=== PATIENT | male | born 1940 ===

== ENCOUNTER 2018-07-13 12:13 | Inpatient (IN) | payer MEDICARE ==
[2018-07-13 12:57] LABS: BASO # 0.1 K/uL (0.0-0.2); BASO % 1.4 % (0.0-2.0); EOS # 0.1 K/uL (0.0-0.7); EOS % 1.4 % (0.0-4.0); HEMOGLOBIN 14.7 g/dL (12.0-18.0); LYMPH # 2.4 K/uL (1.0-4.3); LYMPH % 32.1 % (20.0-40.0); MEAN CORPUSCULAR HEMOGLOBIN 32.9 pg (27.0-31.0); MEAN CORPUSCULAR HGB CONC 33.6 g/dL (33.0-37.0); MEAN PLATELET VOLUME 8.7 fL (7.2-11.7); MONO # 0.4 K/uL (0.0-0.8); MONO % 5.2 % (0.0-10.0); NEUT # 4.4 K/uL (1.8-7.0); NEUT % 59.9 % (50.0-75.0); NRBC % 0.1 % (0.0-2.0); RBC 4.48 Mil/uL (4.40-5.90); WHITE BLOOD COUNT 7.4 K/uL (4.8-10.8)
[2018-07-13 13:05] LABS: INR 1.1
[2018-07-13 13:11] LABS: ALB/GLOB RATIO 1.5 (1.0-2.1); ALBUMIN 4.8 g/dL (3.5-5.0); ALT/SGPT 17 U/L (21-72); AST/SGOT 24 U/L (17-59); BLOOD UREA NITROGEN 17 mg/dL (9-20); CALCIUM 9.1 mg/dl (8.6-10.4); GFR NON-AFRICAN AMERICAN > 60
[2018-07-13 13:22] LABS: B-TYPE NATRIURETIC PEPTIDE 33.6 pg/mL (0-900)
[2018-07-13] MEDS ORDERED: Iodixanol 320 MG/ML 100 ML BOTTLE IV ONE (13:24)
--- NOTE | 2018-07-13 13:26 | C.PDOC ---
History Of Present Illness 77 year old male presents to the ED sent by PMD secondary to right sided weakness for 7 days. States his right side feels heavy. Denies any trauma, falls, or CVA history. Denies headache. Time Seen by Provider: 07/13/18 12:35 Chief Complaint (Nursing): Weakness/Neurological Deficit History Per: Patient History/Exam Limitations: no limitations Onset/Duration Of Symptoms: Days (7) Current Symptoms Are (Timing): Still Present Past Medical History Reviewed: Historical Data, Nursing Documentation, Vital Signs Vital Signs: Last Vital Signs Temp 97.6 F 07/13/18 12:21 Pulse 92 H 07/13/18 12:21 Resp 18 07/13/18 12:21 BP 152/81 H 07/13/18 12:21 Pulse Ox 98 07/13/18 12:45 - Medical History PMH: HTN Other Surgeries: Orthopedic surgery Family History: States: No Known Family Hx - Social History Hx Alcohol Use: No Hx Substance Use: No - Immunization History Hx Tetanus Toxoid Vaccination: No Hx Influenza Vaccination: No Hx Pneumococcal Vaccination: No Review Of Systems Except As Marked, All Systems Reviewed And Found Negative. Neurological: Positive for: Weakness Physical Exam - Physical Exam Appears: Non-toxic, No Acute Distress Skin: Warm, Dry Head: Atraumatic, Normacephalic Eye(s): bilateral: Normal Inspection, PERRL, EOMI Nose: Normal Oral Mucosa: Moist Neck: Supple Chest: Symmetrical Cardiovascular: Rhythm Regular Gastrointestinal/Abdominal: Soft, No Tenderness Extremity: Tenderness (right anterior shoulder ), No Deformity, No Swelling, O ther (4+/5 strength to RUE ) Extremity: Bilateral: Normal Color And Temperature DTR: Bicep (R): 2+, Bicep (L): 2+, Knee (R): 2+, Knee (L): 2+ Neurological/Psych: Oriented x3, Normal Speech, Normal Cranial Nerves, No Normal Sensation (slightly decreased sensation to RUE and RLE ) Gait: Steady ED Course And Treatment - Laboratory Results Result Diagrams: 07/13/18 12:53 07/13/18 12:53 ECG: Interpreted By Me, Viewed By Me ECG Rhythm: Sinus Rhythm Interpretation Of ECG: Normal intervals, Normal axis. No ST/T wave abdnormalities. Rate From EC O2 Sat by Pulse Oximetry: 98 (RA) Pulse Ox Interpretation: Normal - Other Rad CXR X-Ray: Read By Radiologist Interpretation: FINDINGS: Examination limited by habitus and hypoinflation. LUNGS: Mild biapical pleural thickening. No focal consolidation. Please note that chest x-ray has limited sensitivity for the detection of pulmonary masses. PLEURA: No significant pleural effusion identified. No definite pneumothorax . CARDIOVASCULAR: Heart size appears within normal limits. Atherosclerotic calcification of the aorta. OSSEOUS STRUCTURES: Degenerative changes. VISUALIZED UPPER ABDOMEN: Mild elevation of the right hemidiaphragm. OTHER FINDINGS: None. IMPRESSION: No acute findings identified. Incidental findings as above. R Shoulder XR X-Ray: Read By Radiologist Interpretation: FINDINGS: BONES: No acute displaced fracture. The distal clavicle and underlying ribs appear intact. JOINTS: No acute dislocation. Acromioclavicular arthropathy. Glenohumeral joint space narrowing. High-riding humeral head may be seen in the setting of chronic rotator cuff injury. SOFT TISSUES: Soft tissues appear unremarkable. No evidence of radiopaque foreign body. IMPRESSION: Evidence of chronic rotator cuff injury. Degenerative changes. No acute displaced fracture or dislocation evident. If symptoms persist or if there is continued clinical concern, x-ray follow-up in 7-10 days should be considered. - CT Scan/US Head CT Other Rad Studies (CT/US): Read By Radiologist, Radiology Report Reviewed CT/US Interpretation: FINDINGS: HEMORRHAGE: No intracranial hemorrhage. BRAIN: There is focal asymmetric low attenuation in the right anterior superior parietal subcortical white matter. There are mild chronic microangiopathic changes. There is no mass, mass effect or abnormal extra-axial fluid collection. The midline sagittal structures are normal. There are symmetric senile bilateral basal ganglia calcifications. VENTRICLES: There is mild age- related global parenchymal volume loss and proportionate enlargement of the ventricles and cortical sulci. CALVARIUM: There is no calvarial fracture or extracranial soft tissue swelling. PARANASAL SINUSES: Predominantly clear. MASTOID AIR CELLS: Predominantly clear. OTHER FINDINGS: None. IMPRESSION: Focal asymmetric low density in the right anterior superior parietal subcortical white matter could represent age indeterminate infarction in the appropriate clinical setting. If clinically indicated, correlation with MRI may be performed for definitive evaluation. Mild chronic microangiopathic changes and mild age-related global parenchymal volume loss. Medical Decision Making Medical Decision Making: Assessment: weakness Plan: - EKG - CXR - Bloodwork - UA - Aspirin 325 mg PO 1400 - discussed with dr. Shin. Since patient symptoms present for one week, no code stroke at this time. Aspirin given discussed with Dr. Bernstein and will admit to medical surgical floor. Disposition Discussed With : Richie Bernstein Doctor Will See Patient In The: Hospital Counseled Patient/Family Regarding: Studies Performed, Diagnosis - Disposition Disposition: HOSPITALIZED Disposition Time: 14:28 Condition: FAIR Forms: [facility] ([place]) - Clinical Impression Clinical Impression: Weakness of limb - Scribe Statement The provider has reviewed the documentation as recorded by the Scribe Slime Del Toro All medical record entries made by the Scribe were at my direction and personally dictated by me. I have reviewed the chart and agree that the record accurately reflects my personal performance of the history, physical exam, medical decision making, and the department course for this patient. I have also personally directed, reviewed, and agree with the discharge instructions and di sposition.
--- NOTE | 2018-07-13 13:58 | RAD ---
HISTORY: SOB COMPARISON: None available. TECHNIQUE: Chest, one view. FINDINGS: Examination limited by habitus and hypoinflation. LUNGS: Mild biapical pleural thickening. No focal consolidation. Please note that chest x-ray has limited sensitivity for the detection of pulmonary masses. PLEURA: No significant pleural effusion identified. No definite pneumothorax . CARDIOVASCULAR: Heart size appears within normal limits. Atherosclerotic calcification of the aorta. OSSEOUS STRUCTURES: Degenerative changes. VISUALIZED UPPER ABDOMEN: Mild elevation of the right hemidiaphragm. OTHER FINDINGS: None. IMPRESSION: No acute findings identified. Incidental findings as above.
--- NOTE | 2018-07-13 14:01 | RAD ---
PROCEDURE: Radiographs of the Right Shoulder HISTORY: right shoulder pain COMPARISON: Right shoulder radiographs performed 02/15/17 FINDINGS: BONES: No acute displaced fracture. The distal clavicle and underlying ribs appear intact. JOINTS: No acute dislocation. Acromioclavicular arthropathy. Glenohumeral joint space narrowing. High-riding humeral head may be seen in the setting of chronic rotator cuff injury. SOFT TISSUES: Soft tissues appear unremarkable. No evidence of radiopaque foreign body. IMPRESSION: Evidence of chronic rotator cuff injury. Degenerative changes. No acute displaced fracture or dislocation evident. If symptoms persist or if there is continued clinical concern, x-ray follow-up in 7-10 days should be considered.
[2018-07-13 14:15] LABS: SQUAMOUS EPITHIAL < 1 /hpf (0-5); URINE BILIRUBIN NEGATIVE (NEGATIVE); URINE BLOOD NEGATIVE (NEGATIVE); URINE CLARITY Clear (Clear); URINE COLOR Straw (YELLOW); URINE GLUCOSE (UA) NORMAL (Normal); URINE LEUKOCYTE ESTERASE NEG Leu/uL (Negative); URINE PROTEIN NEGATIVE (NEGATIVE); URINE UROBILINOGEN NORMAL mg/dL (0.2-1.0)
--- NOTE | 2018-07-13 14:19 | CT ---
Date of service: 07/13/2018 PROCEDURE: CT HEAD WITHOUT CONTRAST. HISTORY: right side weakness COMPARISON: None available. TECHNIQUE: Axial computed tomography images were obtained through the head/brain without intravenous contrast. Radiation dose: Total exam DLP = 1040.18 mGy-cm. This CT exam was performed using one or more of the following dose reduction techniques: Automated exposure control, adjustment of the mA and/or kV according to patient size, and/or use of iterative reconstruction technique. FINDINGS: HEMORRHAGE: No intracranial hemorrhage. BRAIN: There is focal asymmetric low attenuation in the right anterior superior parietal subcortical white matter. There are mild chronic microangiopathic changes. There is no mass, mass effect or abnormal extra-axial fluid collection. The midline sagittal structures are normal. There are symmetric senile bilateral basal ganglia calcifications. VENTRICLES: There is mild age-related global parenchymal volume loss and proportionate enlargement of the ventricles and cortical sulci. CALVARIUM: There is no calvarial fracture or extracranial soft tissue swelling. PARANASAL SINUSES: Predominantly clear. MASTOID AIR CELLS: Predominantly clear. OTHER FINDINGS: None. IMPRESSION: Focal asymmetric low density in the right anterior superior parietal subcortical white matter could represent age indeterminate infarction in the appropriate clinical setting. If clinically indicated, correlation with MRI may be performed for definitive evaluation. Mild chronic microangiopathic changes and mild age-related global parenchymal volume loss.
[2018-07-13] MEDS ORDERED: Aspirin 325 mg EC Tablets PO STA (14:25)
--- NOTE | 2018-07-13 14:32 | CT ---
Date of service: 07/13/2018 PROCEDURE: CTA HEAD AND NECK WITH CONTRAST HISTORY: Right sided weakness COMPARISON: None available. TECHNIQUE: Initial noncontrast head CT was performed. Subsequently, CT angiogram of the head and neck were performed after the intravenous administration of 80 mL of Omnipaque 350. Contiguous 1.5mm thick images were obtained in the axial plane of the neck. 2-D coronal and sagittal MPR images were obtained. Imaging postprocessing was performed with 3-D images also obtained. A delayed contrast head CT was also obtained. This CT exam was performed using one or more of the following dose reduction techniques: Automated exposure control, adjustment of the mA and/or kV according to patient size, and/or use of iterative reconstruction technique. Contrast dose: 100 mL Visipaque 320 Radiation dose: Total exam DLP = 551.76 mGy-cm. FINDINGS: HEAD: Right: The intracranial internal carotid artery, and anterior and middle cerebral arteries are widely patent. Left: The intracranial internal carotid artery, and anterior and middle cerebral arteries are widely patent. Posterior circulation: The visualized intracranial vertebral arteries, basilar artery and posterior cerebral arteries are widely patent. There is no endoluminal filling defect to suggest thrombus. There is no intracranial saccular aneurysm. NECK: There is a three vessel aortic arch. There is no stenosis at the origins of the great vessels at the level of the aortic arch. There are atherosclerotic calcifications in both proximal internal carotid arteries, worse on the right. Right Carotid: On the right, the common carotid, internal carotid and external carotid arteries are widely patent. There is no hemodynamically significant stenosis in the internal carotid artery by NASCET criteria. Left Carotid: On the left, the common carotid, internal carotid and external carotid arteries are widely patent. There is no hemodynamically significant stenosis in the internal carotid artery by NASCET criteria. The vertebral arteries are widely patent. The visualized soft tissues of the neck are normal. The visualized brain and cervical spine are within normal limits. There is biapical pleural thickening, worse on the left. There are scattered right apical pleural calcifications. There is an apparent 8 mm nodule in the left apical posterior segment (series 2, image 45). IMPRESSION: 1. No evidence of endoluminal thrombus,occlusion or definite significant stenosis in the intracranial arteries. 2. No evidence of hemodynamically significant stenosis in the internal carotid arteries. 3. Patent bilateral vertebral arteries. 4. Biapical pleural thickening, worse on the left. Apparent 8 mm nodule in the apical posterior segment of the left upper lobe. Comparison with prior imaging studies would be helpful to assess the stability of this nodule. If no prior imaging studies are available for comparison, a dedicated CT scan of the thorax without intravenous contrast is recommended for further characterization and complete evaluation of the lungs.
--- NOTE | 2018-07-13 14:44 | CP.PCM.CON ---
History of Present Illness - History of Present Illness History of Present Illness: Patient is a 77 year old male with PMHx of HTN who presents to ED today, sent by his PMD for evaluation of right sided weakness that began on Monday. Patient reports he awoke with severe right shoulder pain, greater in intensity than his chronic shoulder pain, and noticed weakness in his right arm in addition to abnormal movements; pt states his right arm has spastic movement without intention. Patient reports new onset right lower extremity tremor as well as right lower extremity weakness. Patient denies visual changes, paresthesias, numbness, slurred speech, or history of prior stroke or cardiac event. Denies chest pain, palpitations, SOB, nausea. PMHx: HTN PSHx: appendectomy, left ortho foot sx Meds: losartan, amlodipine Allergies: NKDA Review of Systems - EENT Eyes: absent: Change in Vision - Cardiovascular Cardiovascular: absent: Chest Pain, Leg Edema, Palpitations - Respiratory Respiratory: absent: Dyspnea - Gastrointestinal Gastrointestinal: absent: Nausea - Musculoskeletal Musculoskeletal: Abnormal Gait, Limited Range of Motion (right shoulder). absent: Numbness - Neurological Neurological: Abnormal Gait (2/2 weakness), Abnormal Movements, Tremor (RLE), Weakness. 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 - PSYCHIATRIC Hx Substance Use: No - SURGICAL HISTORY Hx Surgeries: Yes Hx Orthopedic Surgery: Yes (LEFT ANKLE) - ANESTHESIA Hx Anesthesia: Yes Hx Anesthesia Reactions: No Meds Allergies/Adverse Reactions: Allergies Allergy/AdvReac Type Severity Reaction Status Date / Time No Known Allergies Allergy Unverified 07/13/18 12:28 Physical Exam - Constitutional Appears: Non-toxic, No Acute Distress - Head Exam Head Exam: ATRAUMATIC, NORMAL INSPECTION, NORMOCEPHALIC - Eye Exam Eye Exam: EOMI, Normal appearance Pupil Exam: PERRL - ENT Exam ENT Exam: Mucous Membranes Moist, Normal Exam - Neck Exam Neck exam: Positive for: Normal Inspection - Respiratory Exam Respiratory Exam: Clear to Auscultation Bilateral, NORMAL BREATHING PATTERN. absent: Respiratory Distress - Cardiovascular Exam Cardiovascular Exam: REGULAR RHYTHM, +S1, +S2. absent: Tachycardia - GI/Abdominal Exam GI & Abdominal Exam: Soft. absent: Distended - Extremities Exam Extremities exam: Positive for: normal inspection. Negative for: calf tenderness, pedal edema - Neurological Exam Neurological exam: Alert, Oriented x3 - Expanded Neurological Exam Expanded Patient oriented to: person, place, time Cranial nerves: EOM's Intact: Normal, Facial Sensation: Normal Neuro motor strength exam: Left Upper Extremity: 5, Right Upper Extremity: 4 (decreased right learning coordinator), Left Lower Extremity: 5, Right Lower Extremity: 5 - Psychiatric Exam Psychiatric exam: Normal Affect, Normal Mood - Skin Skin Exam: Dry, Intact, Normal Color, Warm Results - Vital Signs Recent Vital Signs: Last Vital Signs Temp 97.6 F 07/13/18 12:21 Pulse 92 H 07/13/18 12:21 Resp 18 07/13/18 12:21 BP 152/81 H 07/13/18 12:21 Pulse Ox 98 07/13/18 14:28 - Labs Result Diagrams: 07/13/18 12:53 07/13/18 12:53 Labs: Laboratory Results - last 24 hr 07/13/18 07/13/18 07/13/18 12:27 12:53 12:53 WBC 7.4 RBC 4.48 Hgb 14.7 Hct 43.9 MCV 98.0 H MCH 32.9 H MCHC 33.6 RDW 13.0 Plt Count 325 MPV 8.7 Neut % (Auto) 59.9 Lymph % (Auto) 32.1 [place] % (Auto) 5.2 Eos % (Auto) 1.4 Baso % (Auto) 1.4 Neut # (Auto) 4.4 Lymph # (Auto) 2.4 [place] # (Auto) 0.4 Eos # (Auto) 0.1 Baso # (Auto) 0.1 PT 12.0 INR 1.1 APTT 33 Sodium Potassium Chloride Carbon Dioxide Anion Gap BUN Creatinine Est GFR ( Amer) Est GFR (Non-Af Amer) POC Glucose (mg/dL) 94 Random Glucose Calcium Total Bilirubin AST ALT Alkaline Phosphatase Troponin I NT-Pro-B Natriuret Pep Total Protein Albumin Globulin Albumin/Globulin Ratio Urine Color Urine Clarity Urine pH Ur Specific [place] Urine Protein Urine Glucose (UA) Urine Ketones Urine Blood Urine Nitrate Urine Bilirubin Urine Urobilinogen Ur Leukocyte Esterase Urine WBC (Auto) Ur Squamous Epith Cells 07/13/18 07/13/18 12:53 14:07 WBC RBC Hgb Hct MCV MCH MCHC RDW Plt Count MPV Neut % (Auto) Lymph % (Auto) [place] % (Auto) Eos % (Auto) Baso % (Auto) Neut # (Auto) Lymph # (Auto) [place] # (Auto) Eos # (Auto) Baso # (Auto) PT INR APTT Sodium 138 Potassium 3.8 Chloride 103 Carbon Dioxide 23 Anion Gap 16 BUN 17 Creatinine 0.9 Est GFR ( Amer) > 60 Est GFR (Non-Af Amer) > 60 POC Glucose (mg/dL) Random Glucose 99 Calcium 9.1 Total Bilirubin 0.6 AST 24 ALT 17 L Alkaline Phosphatase 75 Troponin I < 0.0120 NT-Pro-B Natriuret Pep 33.6 Total Protein 8.1 Albumin 4.8 Globulin 3.3 Albumin/Globulin Ratio 1.5 Urine Color Straw Urine Clarity Clear Urine pH 7.0 Ur Specific [place] 1.004 Urine Protein Negative Urine Glucose (UA) Normal Urine Ketones Negative Urine Blood Negative Urine Nitrate Negative Urine Bilirubin Negative Urine Urobilinogen Normal Ur Leukocyte Esterase Neg Urine WBC (Auto) < 1 Ur Squamous Epith Cells < 1 Assessment & Plan - Assessment and Plan (Free Text) Assessment: 77 year old male 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 Moderate chronic microangiopathic changes and mild age related global parenchymal volume loss -CTA head/neck(07/13): negative for stenosis/occlusion -f/u echo -ASA -f/u lipid panel, A1C, B12, folate, TSH -PT/OT/swallow -medical management per primary Discussed with Dr. Kip Mederos, PGY-1
--- NOTE | 2018-07-13 15:09 | MRI ---
Date of service: 07/13/2018 PROCEDURE: MRI BRAIN WITHOUT CONTRAST HISTORY: Right sided weakness COMPARISON: Noncontrast head CT performed earlier the same day TECHNIQUE: Multiplanar, multisequence MR images of the brain were obtained without intravenous contrast enhancement. FINDINGS: HEMORRHAGE: None DWI: There is focal restricted diffusion in the left posterior centrum semiovale. BRAIN PARENCHYMA: There is T2/FLAIR hyperintense signal corresponding to the area of restricted diffusion in the left posterior centrum semiovale. There are moderate chronic microangiopathic changes. There is focal chronic microvascular ischemia in the right parietal subcortical white matter corresponding to the focal abnormality identified on CT scan. There is no mass, mass effect or abnormal extra-axial fluid collection. The midline sagittal structures are normal. VENTRICLES: There is mild age-related global parenchymal volume loss and proportionate enlargement of the ventricles and cortical sulci. CRANIUM: There is normal bone marrow signal pattern. ORBITS: Grossly unremarkable. PARANASAL SINUSES/MASTOIDS: Predominantly clear. VASCULAR SYSTEM: There are normal signal voids in the larger intracranial arteries. OTHER FINDINGS: None. 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 Moderate chronic microangiopathic changes and mild age-related global parenchymal volume loss. Important findings were discussed with Dr. Jose Shin on 07/13/2018 at 3:00 p.m.
[2018-07-13 21:00] LABS: FOLATE 13.2 ng/mL
[2018-07-14] MEDS: Enoxaparin 40 mg Syringe SC SCH (10:18)
--- NOTE | 2018-07-14 16:56 | CARD ---
APPROVED REPORT Date of service: 07/14/2018 EXAM: Two-dimensional and M-mode echocardiogram with Doppler and color Doppler. INDICATION CVA/TIA 2D DIMENSIONS IVSd0.9 (0.7-1.1cm)Aortic Root (2D)3.1 (2.0-3.7cm) LVDd4.3 (3.9-5.9cm)PWd0.9 (0.7-1.1cm) LA Usrhjs85 (18-58mL)LVDs2.2 (2.5-4.0cm) FS (%) 42.0 %LVEF (%)69.0 (>50%) LVEF (Wild's)72 %IVC0.00 cm M-Mode DIMENSIONS Left Atrium (MM)3.12 (2.5-4.0cm)IVSd0.52 (0.7-1.1cm) Aortic Root2.62 (2.2-3.7cm)LVDd5.14 (4.0-5.6cm) Aortic Cusp Exc.1.37 (1.5-2.0cm)PWd0.94 (0.7-1.1cm) FS (%) 40 %LVDs2.28 (2.0-3.8cm) LVEF (%)70 (>50%) Mitral Valve MV E Ednyzble03.8cm/sMV A Jiqxtqgx756.0cm/sE/A ratio0.6 TDI Lateral E' Peak V7.00cm/sMedial E' Peak V3.90cm/sE/Lateral E'9.3 E/Medial E'16.6 Tricuspid Valve TR Peak [id number]/sTR Peak Gr.[id number] LEFT VENTRICLE The left ventricle is normal size. There is normal left ventricular wall thickness. Left ventricle systolic function is normal. The Ejection Fraction is >70%. There is normal LV segmental wall motion. Tissue Doppler imaging reveals abnormal left ventricular diastolic dysfunction. RIGHT VENTRICLE The right ventricle is normal size. There is normal right ventricular wall thickness. The right ventricular systolic function is normal. ATRIA The left atrium size is normal. The right atrium size is normal. The interatrial septum is intact with no evidence for an atrial septal defect. AORTIC VALVE The aortic valve is normal in structure. No aortic regurgitation is present. There is no aortic valvular stenosis. MITRAL VALVE The mitral valve is normal in structure. There is no evidence of mitral valve prolapse. There is no mitral valve stenosis. Mitral regurgitation is mild. TRICUSPID VALVE The tricuspid valve is normal in structure. There is mild tricuspid regurgitation. Right ventricular systolic pressure is estimated at less than 30 mmHg. There is no pulmonary hypertension. PULMONIC VALVE The pulmonic valve is not well visualized. There is no pulmonic valvular regurgitation. GREAT VESSELS The aortic root is normal in size. PERICARDIAL EFFUSION There is no pericardial effusion. <Conclusion> Left ventricle systolic function is normal. The Ejection Fraction is >70%. Diastolic dysfunction. No aortic regurgitation is present. Mitral regurgitation is mild. There is mild tricuspid regurgitation. There is no pulmonary hypertension. There is no pulmonic valvular regurgitation.
--- NOTE | 2018-07-14 21:23 | CP.PCM.HP ---
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 - RENAL Hx Chronic Kidney Disease: No - ENDOCRINE/METABOLIC Hx Endocrine Disorders: No - HEMATOLOGICAL/ONCOLOGICAL Hx Blood Disorders: No - INTEGUMENTARY Hx Dermatological Problems: No - MUSCULOSKELETAL/RHEUMATOLOGICAL Hx Musculoskeletal Disorders: No - GASTROINTESTINAL Hx Gastrointestinal Disorders: No - GENITOURINARY/GYNECOLOGICAL Hx Genitourinary Disorders: No - PSYCHIATRIC Hx Substance Use: No - SURGICAL HISTORY Hx Surgeries: Yes Hx Orthopedic Surgery: Yes (LEFT ANKLE) - ANESTHESIA Hx Anesthesia: Yes Hx Anesthesia Reactions: No Hx Malignant Hyperthermia: No Has any member of the family had a problem w/ anesthesia?: No Meds Allergies/Adverse Reactions: Allergies Allergy/AdvReac Type Severity Reaction Status Date / Time No Known Allergies Allergy Unverified 07/13/18 12:28 Results - Vital Signs Recent Vital Signs: Last Vital Signs Temp 98.1 F 07/14/18 15:00 Pulse 71 07/14/18 16:47 Resp 20 07/14/18 15:00 BP 131/69 07/14/18 15:00 Pulse Ox 95 07/14/18 16:47 - Labs Result Diagrams: 07/13/18 12:53 07/13/18 12:53
[2018-07-15] MEDS: Enoxaparin 40 mg Syringe SC SCH (09:13)
--- NOTE | 2018-07-15 11:27 | CP.PCM.CON ---
History of Present Illness - History of Present Illness History of Present Illness: reason for consultation: biapical pleural thickening 77-year-old male with history of hypertension who presented to emergency room wi th right-sided weakness. patient denies cough, denies shortness of breat, denies fever chills, denies chest pain. Patient denies history of smoking or exposure to asbestos or any chemicals. 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 - RENAL Hx Chronic Kidney Disease: No - ENDOCRINE/METABOLIC Hx Endocrine Disorders: No - HEMATOLOGICAL/ONCOLOGICAL Hx Blood Disorders: No - INTEGUMENTARY Hx Dermatological Problems: No - MUSCULOSKELETAL/RHEUMATOLOGICAL Hx Musculoskeletal Disorders: No - GASTROINTESTINAL Hx Gastrointestinal Disorders: No - GENITOURINARY/GYNECOLOGICAL Hx Genitourinary Disorders: No - PSYCHIATRIC Hx Substance Use: No - SURGICAL HISTORY Hx Surgeries: Yes Hx Orthopedic Surgery: Yes (LEFT ANKLE) - ANESTHESIA Hx Anesthesia: Yes Hx Anesthesia Reactions: No Hx Malignant Hyperthermia: No Has any member of the family had a problem w/ anesthesia?: No Meds Allergies/Adverse Reactions: Allergies Allergy/AdvReac Type Severity Reaction Status Date / Time No Known Allergies Allergy Unverified 07/13/18 12:28 - Medications Medications: Current Medications Acetaminophen (Tylenol 325mg Tab) 650 mg PO Q6 PRN PRN Reason: Pain, Mild (1-3) Last Admin: 07/15/18 00:02 Dose: 650 mg Aspirin (Aspirin) 325 mg PO DAILY [facility] Last Admin: 07/15/18 09:13 Dose: 325 mg Enoxaparin Sodium (Lovenox) 40 mg SC DAILY [facility] Last Admin: 07/15/18 09:13 Dose: 40 mg Losartan Potassium (Cozaar) 100 mg PO DAILY [facility] Last Admin: 07/15/18 09:13 Dose: 100 mg Rosuvastatin Calcium (Crestor) 20 mg PO HS [facility] Last Admin: 07/14/18 21:23 Dose: 20 mg Physical Exam - Head Exam Head Exam: ATRAUMATIC, NORMOCEPHALIC - ENT Exam ENT Exam: Mucous Membranes Moist - Neck Exam Neck exam: Positive for: Normal Inspection - Respiratory Exam Respiratory Exam: Clear to Auscultation Bilateral - Cardiovascular Exam Cardiovascular Exam: REGULAR RHYTHM - GI/Abdominal Exam GI & Abdominal Exam: Normal Bowel Sounds, Soft Results - Vital Signs Recent Vital Signs: Last Vital Signs Temp 97.8 F 07/15/18 07:20 Pulse 77 07/15/18 09:13 Resp 18 07/15/18 07:20 BP 132/74 07/15/18 09:13 Pulse Ox 97 07/15/18 07:20 - Labs Result Diagrams: 07/13/18 12:53 07/13/18 12:53 Assessment & Plan (1) Pleural thickening Status: Acute Comment: consider CAT scan of the chest. Does not need any further workup. Neurology workup/physical therapy
--- NOTE | 2018-07-15 15:38 | CP.PCM.PN ---
Subjective - Date & Time of Evaluation Date of Evaluation: 07/14/18 Time of Evaluation: 13:45 - Subjective Subjective: Patient has subacute stroke in left centrum semiovale, most likely several days old. Stroke workup in progress. ECHO, CTA head and neck completed. ROS: as above. Neuro exam: Normal neuro exam except for right arm that is weak secondary to pain. MRI: normal CTA head: normal. Objective - Vital Signs/Intake and Output Vital Signs (last 24 hours): Temp Pulse Resp BP Pulse Ox 97.8 F 69 18 132/74 97 07/15/18 07:20 07/15/18 12:00 07/15/18 07:20 07/15/18 09:13 07/15/18 07:20 Intake and Output: 07/15/18 07/15/18 06:59 18:59 Intake Total 400 Balance 400 - Medications Medications: Current Medications Acetaminophen (Tylenol 325mg Tab) 650 mg PO Q6 PRN PRN Reason: Pain, Mild (1-3) Last Admin: 07/15/18 00:02 Dose: 650 mg Aspirin (Aspirin) 325 mg PO DAILY [facility] Last Admin: 07/15/18 09:13 Dose: 325 mg Enoxaparin Sodium (Lovenox) 40 mg SC DAILY [facility] Last Admin: 07/15/18 09:13 Dose: 40 mg Losartan Potassium (Cozaar) 100 mg PO DAILY [facility] Last Admin: 07/15/18 09:13 Dose: 100 mg Rosuvastatin Calcium (Crestor) 20 mg PO HS [facility] Last Admin: 07/14/18 21:23 Dose: 20 mg - Labs Labs: 07/13/18 12:53 07/13/18 12:53 PT 12.0 SECONDS (9.7-12.2) 07/13/18 12:53 INR 1.1 07/13/18 12:53 APTT 33 SECONDS (21-34) 07/13/18 12:53 Assessment and Plan - Assessment and Plan (Free Text) Assessment: Patient with most likely lacunar stroke PLan: 1. continue management. Dr. ardon
--- NOTE | 2018-07-15 15:53 | CP.PCM.PN ---
Subjective - Date & Time of Evaluation Date of Evaluation: 07/14/18 Time of Evaluation: 15:30 - Subjective Subjective: patient has some weakness on right side. stroke workup complete. On exam: Neuro exam unchanged. Objective - Vital Signs/Intake and Output Vital Signs (last 24 hours): Temp Pulse Resp BP Pulse Ox 97.8 F 69 18 132/74 97 07/15/18 07:20 07/15/18 12:00 07/15/18 07:20 07/15/18 09:13 07/15/18 07:20 Intake and Output: 07/15/18 07/15/18 06:59 18:59 Intake Total 400 Balance 400 - Medications Medications: Current Medications Acetaminophen (Tylenol 325mg Tab) 650 mg PO Q6 PRN PRN Reason: Pain, Mild (1-3) Last Admin: 07/15/18 00:02 Dose: 650 mg Aspirin (Aspirin) 325 mg PO DAILY [facility] Last Admin: 07/15/18 09:13 Dose: 325 mg Enoxaparin Sodium (Lovenox) 40 mg SC DAILY [facility] Last Admin: 07/15/18 09:13 Dose: 40 mg Losartan Potassium (Cozaar) 100 mg PO DAILY [facility] Last Admin: 07/15/18 09:13 Dose: 100 mg Rosuvastatin Calcium (Crestor) 20 mg PO HS [facility] Last Admin: 07/14/18 21:23 Dose: 20 mg - Labs Labs: 07/13/18 12:53 07/13/18 12:53 PT 12.0 SECONDS (9.7-12.2) 07/13/18 12:53 INR 1.1 07/13/18 12:53 APTT 33 SECONDS (21-34) 07/13/18 12:53 Assessment and Plan - Assessment and Plan (Free Text) Assessment: 77 yr old male with most likely lacunar stroke, who has now completed his stroke workup, and is obtaining physical therapy. PLan; 1. continue aspirin 2. Orthopedic surgery for rotator cuff tear. Will follow Dr Shin
--- NOTE | 2018-07-16 01:10 | PN ---
DATE: 07/15/2018 SUBJECTIVE: The patient is with right-sided weakness. He is feeling better. He denies any shortness of breath. His MRI is positive for a stroke. The patient was seen by Neurology. Stroke workup is completed. Neuro status is unchanged. He does have right-sided weakness. The patient is for Orthopedics' eval. PHYSICAL EXAMINATION VITAL SIGNS: Blood pressure 128/68, pulse 64, respiratory rate 20, temperature 97.8. SKIN: No rashes. No bruises. No purpura. LUNGS: Clear. CARDIOVASCULAR SYSTEM: S1 and S2 regular. CENTRAL NERVOUS SYSTEM: Right-sided power is 2/5. ASSESSMENT: 1. Cerebrovascular accident with right-sided weakness. 2. Hypertension. 3. Hyperlipidemia. 4. Vitamin B12 deficiency. PLAN: Physical therapy, rehab. Orthopedics' eval for right-sided shoulder pain. Richie Bernstein MD
--- NOTE | 2018-07-16 02:20 | HP ---
CHIEF COMPLAINT: Right-sided weakness x7 days. HISTORY OF PRESENT ILLNESS: This is a 77-year-old male who presented to the emergency room with right-sided weakness for seven days. According to him, right side is still heavy. He is having difficulty walking using his right hand for activities of daily living according to the patient. He was seen by his PMD for this complaint, and he referred him to emergency room, which started a week ago. He is also having right shoulder pain. The pain is sharp in intensity. He has it for long time and is worse with right upper extremity movement. According to the patient, the pain is spastic. The patient also has right-sided weakness and tremor. The patient denies any visual changes, paresthesias, numbness, slurring of speech, or prior history of stroke or any cardiovascular events. He denies any palpitation, weakness, dizziness, chest pain, or dyspnea. He denies any history of polyuria, polydipsia, or polyphagia. He denies any history of hematuria or pyuria. He denies any sneezing, itchy eyes, or itchy nose. There is no history of trauma, fall, or loss of consciousness. CURRENT MEDICATIONS: At home, he is on Norvasc and losartan. SOCIAL HISTORY: Nonsmoker. PHYSICAL EXAMINATION: GENERAL: An elderly male, in no acute distress. VITAL SIGNS: Blood pressure 127/73, pulse 75, respiratory rate 20, temperature 97.4. SKIN: No rashes. No bruises. No purpura. HEENT: Atraumatic and normocephalic. Negative pallor. Negative jaundice. Extraocular movements are intact. NECK: Supple. No JVD. No lymph node. No thyromegaly. No carotid bruits. CHEST WALL: Bilateral symmetrical expansion. No tenderness. LUNGS: Clear. No rales. No rhonchi. CARDIOVASCULAR SYSTEM: PMI in the fifth intercostal space. No heave. No thrill. S1 and S2 are regular. ABDOMEN: Soft and nontender. Bowel sounds are positive. RECTAL: Enlarged prostate. GENITAL: Normal. EXTREMITIES: No clubbing, cyanosis or edema. Right shoulder decreased range of movement. CENTRAL NERVOUS SYSTEM: Awake, alert and oriented x3. Normal speech. Cranial nerves II through XII are normal. Power 2/5 in the right upper extremity, 5/5 rest. Gait not tested. ASSESSMENT: 1. Cerebrovascular accident with right-sided weakness. 2. Hypertension. 3. Hyperlipidemia. 4. Right shoulder pain. PLAN: Admit. Neuro checks. Fall precaution. Physical therapy. Rehab. Richie Bernstein MD
--- NOTE | 2018-07-16 08:18 | CARD ---
APPROVED REPORT Date of service: 07/13/2018 EKG Measurement Heart [id number] [place] [id number] <Conclusion> Normal sinus rhythm Normal ECG
[2018-07-16] MEDS: Enoxaparin 40 mg Syringe SC SCH (10:02)
--- NOTE | 2018-07-16 11:08 | CP.PCM.CON ---
History of Present Illness - History of Present Illness History of Present Illness: Orthopedic Consult: Dr. Perez Patient is a 77 y/o RHD male c/o R shoulder pain. Patient is currently admitted and treated for stroke. He reports non-traumatic R shoulder pain and dysfunction which began 2-3 weeks ago. He was evaluated outpatient by physician who prescribed course of physical therapy, 5-6 sessions so far, which has not been helping. When he woke up a few days ago, he experienced severe R shoulder pain and weakness, without injury. Currently, he c/o moderate sharp pain at the shoulder anteriorly and laterally. The pain worsens when lifting objects and sleeping on his R side. The pain improves with rest. Pain is associated with weakness and stiffness. He notes that he has had a cortisone injection to the R shoulder by a physician 2-3 months ago which alleviated the pain temporarily. He denies CP/SOB/N/V/D/fever/dysuria/melena. 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 - RENAL Hx Chronic Kidney Disease: No - ENDOCRINE/METABOLIC Hx Endocrine Disorders: No - HEMATOLOGICAL/ONCOLOGICAL Hx Blood Disorders: No - INTEGUMENTARY Hx Dermatological Problems: No - MUSCULOSKELETAL/RHEUMATOLOGICAL Hx Musculoskeletal Disorders: No - GASTROINTESTINAL Hx Gastrointestinal Disorders: No - GENITOURINARY/GYNECOLOGICAL Hx Genitourinary Disorders: No - PSYCHIATRIC Hx Substance Use: No - SURGICAL HISTORY Hx Surgeries: Yes Hx Orthopedic Surgery: Yes (LEFT ANKLE) - ANESTHESIA Hx Anesthesia: Yes Hx Anesthesia Reactions: No Hx Malignant Hyperthermia: No Has any member of the family had a problem w/ anesthesia?: No Meds Allergies/Adverse Reactions: Allergies Allergy/AdvReac Type Severity Reaction Status Date / Time No Known Allergies Allergy Unverified 07/13/18 12:28 - Medications Medications: Current Medications Acetaminophen (Tylenol 325mg Tab) 650 mg PO Q6 PRN PRN Reason: Pain, Mild (1-3) Last Admin: 07/15/18 21:29 Dose: 650 mg Aspirin (Aspirin) 325 mg PO DAILY [facility] Last Admin: 07/16/18 10:02 Dose: 325 mg Enoxaparin Sodium (Lovenox) 40 mg SC DAILY [facility] Last Admin: 07/16/18 10:02 Dose: 40 mg Losartan Potassium (Cozaar) 100 mg PO DAILY [facility] Last Admin: 07/16/18 10:03 Dose: 100 mg Rosuvastatin Calcium (Crestor) 20 mg PO HS [facility] Last Admin: 07/15/18 21:29 Dose: 20 mg Physical Exam - Constitutional Appears: Well, No Acute Distress - Head Exam Head Exam: ATRAUMATIC, NORMOCEPHALIC - Eye Exam Eye Exam: EOMI, Normal appearance, PERRL - ENT Exam ENT Exam: Mucous Membranes Moist - Respiratory Exam Respiratory Exam: NORMAL BREATHING PATTERN - Cardiovascular Exam Cardiovascular Exam: +S1, +S2 - GI/Abdominal Exam GI & Abdominal Exam: Soft. absent: Tenderness - Extremities Exam Additional comments: RUE: no swelling/masses/deformity/lesions diffuse tenderness anteriorly and laterally, tender at bicipital groove Active FF and abd 0-90deg, passive FF and ABD 0-150 deg, ER 0-60 sensation and motor intact AXN/MN/UN/RN radial pulse intact LUE: no swelling/masses/deformity/lesions no tenderness FROM sensation and motor intact AXN/MN/UN/RN radial pulse intact Results - Vital Signs Recent Vital Signs: Last Vital Signs Temp 97.9 F 07/16/18 08:00 Pulse 67 07/16/18 08:00 Resp 20 07/16/18 08:00 BP 140/81 07/16/18 08:00 Pulse Ox 97 07/16/18 08:00 - Labs Result Diagrams: 07/13/18 12:53 07/13/18 12:53 - Impressions Impression: Accession No. : [id number] Patient Name / ID : EDUARDA Mcmahon / [id number] Exam Date : 07/13/2018 13:13:26 ( Approved ) Study Comment : Sex / Age : M / 77Y Creator : Debi Moreno MD Dictator : Debi Moreno MD Boat Detailer : Assistant Department Manager : Debi Moreno MD Approver2 : Report Date : 07/13/2018 13:57:09 My Comment : PROCEDURE: Radiographs of the Right Shoulder HISTORY: right shoulder pain COMPARISON: Right shoulder radiographs performed 02/15/17 FINDINGS: BONES: No acute displaced fracture. The distal clavicle and underlying ribs appear intact. JOINTS: No acute dislocation. Acromioclavicular arthropathy. Glenohumeral joint space narrowing. High-riding humeral head may be seen in the setting of chronic rotator cuff injury. SOFT TISSUES: Soft tissues appear unremarkable. No evidence of radiopaque foreign body. IMPRESSION: Evidence of chronic rotator cuff injury. Degenerative changes. No acute displaced fracture or dislocation evident. If symptoms persist or if there is continued clinical concern, x-ray follow-up in 7-10 days should be considered. Assessment & Plan (1) Right rotator cuff tear Assessment and Plan: -pain control, ice and NSAID's if ok with neurology (pt currently on ASA). Lidocaine patches prn -MRI R shoulder to evaluate for rotator cuff tear -PT/OT ROM/strenthening as tolerated -No acute orthopedic intervention required otherwise -May f/u as outpatient for treatment -orthopedically stable -Above d/w Dr. Perez in agreement Status: Acute
--- NOTE | 2018-07-16 11:29 | CP.PCM.PN ---
Subjective - Date & Time of Evaluation Date of Evaluation: 07/16/18 Time of Evaluation: 08:00 - Subjective Subjective: Neurology Progress Note: Patient was seen and examined at bedside in the AM. Patient states he continues to have right shoulder pain 04/25. He states he previously completed 6 sessions of physical therapy for his shoulder as an out patient with no pain relief. Objective - Vital Signs/Intake and Output Vital Signs (last 24 hours): Temp Pulse Resp BP Pulse Ox 97.9 F 67 20 140/81 97 07/16/18 08:00 07/16/18 08:00 07/16/18 08:00 07/16/18 08:00 07/16/18 08:00 - Medications Medications: Current Medications Acetaminophen (Tylenol 325mg Tab) 650 mg PO Q6 PRN PRN Reason: Pain, Mild (1-3) Last Admin: 07/15/18 21:29 Dose: 650 mg Aspirin (Aspirin) 325 mg PO DAILY [facility] Last Admin: 07/16/18 10:02 Dose: 325 mg Enoxaparin Sodium (Lovenox) 40 mg SC DAILY [facility] Last Admin: 07/16/18 10:02 Dose: 40 mg Lidocaine (Lidoderm) 1 ea TD Q12H [facility] Losartan Potassium (Cozaar) 100 mg PO DAILY [facility] Last Admin: 07/16/18 10:03 Dose: 100 mg Rosuvastatin Calcium (Crestor) 20 mg PO HS [facility] Last Admin: 07/15/18 21:29 Dose: 20 mg - Labs Labs: 07/13/18 12:53 07/13/18 12:53 PT 12.0 SECONDS (9.7-12.2) 07/13/18 12:53 INR 1.1 07/13/18 12:53 APTT 33 SECONDS (21-34) 07/13/18 12:53 - Constitutional Appears: No Acute Distress - Head Exam Head Exam: ATRAUMATIC, NORMAL INSPECTION - Eye Exam Eye Exam: EOMI, Normal appearance - ENT Exam ENT Exam: Mucous Membranes Moist - Respiratory Exam Respiratory Exam: Clear to Ausculation Bilateral, NORMAL BREATHING PATTERN - Cardiovascular Exam Cardiovascular Exam: REGULAR RHYTHM, +S1, +S2 - GI/Abdominal Exam GI & Abdominal Exam: Soft, Normal Bowel Sounds. 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 Moderate chronic microangiopathic changes and mild age related global parenchymal volume loss - CTA head/neck(07/13): negative for stenosis/occlusion - Carotid Doppler: Right internal carotid artery - normal; left internal carotid artery - 50-60% stenosis of left proximal ICA - Vascular Surgery Consult: Dr. Shcafer --> help appreciated - Plavix 75mg po daily - Aspirin 81mg po daily - Crestor 20mg po HS - Echo: EF >70%; diastolic dysfunction. - Lipid panel: Total Cholesterol 162; LDL 113; HDL 47; Triglycerides 142 - hA1C 5.0 - B12: 295, folate 13.2, TSH 2.44 - PT recommends subacute therapy - medical management per primary Case discussed with Dr. Kip Cramer PGY-2
--- NOTE | 2018-07-16 13:05 | VASCLAB ---
Date of service: 07/14/2018 PROCEDURE: Carotid Duplex Exam. HISTORY: Right side weakness COMPARISON: None available. TECHNIQUE: Grayscale and duplex Doppler evaluation of the cervical carotid and vertebral arteries were performed. The common carotid, carotid bifurcations and cervical Internal Carotid Artery (ICA) and proximal External Carotid Artery (ECA) were evaluated. The vertebral arteries were evaluated for gross patency and flow direction. Report prepared by MICHA Veloz FINDINGS: RIGHT CAROTID ARTERIES: 1. Common Carotid Artery: No significant focal plaque formation of the right common carotid artery. Maximum Peak Systolic velocity: 117 cm/sec: End-diastolic velocity 17 cm/sec. 2. Carotid Bifurcation: plaque formation. Maximum Peak Systolic velocity: 80 cm/sec: End-diastolic velocity 12 cm/sec. 3. Internal Carotid Artery: Plaque description: Calcific 3.1. Proximal Segment: Peak systolic velocity 90 cm/sec: End-diastolic velocity 20 cm/sec - % stenosis 0-15% 3.2. Middle Segment: Peak systolic velocity 91 cm/sec: End-diastolic velocity 25 cm/sec - % stenosis 0-15% 3.3. Distal Segment: Peak systolic velocity 65 cm/sec: End-diastolic velocity 11 cm/sec - % stenosis 0-15% 4. External Carotid Artery: No significant focal plaque formation. Peak systolic velocity 149 cm/sec 5. ICA/CCA Ratio: 1.1 LEFT CAROTID ARTERIES: 1. Common Carotid Artery: No significant focal plaque formation of the left common carotid artery. Maximum Peak Systolic velocity: 125 cm/sec: End-diastolic velocity 9 cm/sec. 2. Carotid Bifurcation: plaque formation. Maximum Peak Systolic velocity: 83 cm/sec: End-diastolic velocity 16 cm/sec. 3. Internal Carotid Artery: Plaque description: Homogeneous 3.1. Proximal Segment: Peak systolic velocity 162 cm/sec: End-diastolic velocity 32 cm/sec - % stenosis 50-60% 3.2. Middle Segment: Peak systolic velocity 98 cm/sec: End-diastolic velocity 23 cm/sec - % stenosis 3.3. Distal Segment: Peak systolic velocity 90 cm/sec: End-diastolic velocity 22 cm/sec - % stenosis 4. External Carotid Artery: No significant focal plaque formation. Peak systolic velocity 95 cm/sec 5. ICA/CCA Ratio: 1.6 VERTEBRAL ARTERIES: 1. Right Vertebral Artery: The right vertebral artery flow direction is antegrade. 2. Left Vertebral Artery: The left vertebral artery flow direction is antegrade. OTHER FINDINGS: 1. Right Brachial Blood pressure: 125/70 mmHg. 2. Left Brachial Blood pressure: 130/70 mmHg IMPRESSION: RIGHT: Duplex scan does not suggest hemodynamically significant stenosis of the right extracranial carotid arteries. LEFT: Increased velocity at the proximal internal carotid artery, suggesting 50-60% stenosis. Findings were reported to JO-ANN Cortez at 11:13 am.
[2018-07-16] MEDS: Lidocaine 5% Patch TD SCH ×2 (13:54→23:55)
--- NOTE | 2018-07-16 15:55 | CP.PCM.PN ---
Subjective - Date & Time of Evaluation Date of Evaluation: 07/16/18 Time of Evaluation: 15:51 - Subjective Subjective: Vascular Surgery Consult Note For Dr. Schafer This is a 77M with no PMH who presented with RUE pain and RUE + RLE weakness. MRI of the head was significant for a left sided CVA. The patient currently complains of shoulder pain and weakness. No change sine admission. He denies any evolving symptomatology. He denies any illnesses at home. He denies any chest pain or SOB. CTA of the neck shows no stenosis in the common or internal car otid. The ultrasound is significant for a mild hypervelocity in the proximal L ICA. PHH: Denies PSH: Appendectomy ALL: NKDA Social: Denies Vices Objective - Vital Signs/Intake and Output Vital Signs (last 24 hours): Temp Pulse Resp BP Pulse Ox 97.9 F 67 20 140/81 97 07/16/18 08:00 07/16/18 08:00 07/16/18 08:00 07/16/18 08:00 07/16/18 08:00 - Medications Medications: Current Medications Acetaminophen (Tylenol 325mg Tab) 650 mg PO Q6 PRN PRN Reason: Pain, Mild (1-3) Last Admin: 07/15/18 21:29 Dose: 650 mg Aspirin (Ecotrin) 81 mg PO DAILY [facility] Clopidogrel Bisulfate (Plavix) 75 mg PO DAILY [facility] Enoxaparin Sodium (Lovenox) 40 mg SC DAILY [facility] Last Admin: 07/16/18 10:02 Dose: 40 mg Lidocaine (Lidoderm) 1 ea TD Q12H [facility] Last Admin: 07/16/18 13:54 Dose: 1 ea Losartan Potassium (Cozaar) 100 mg PO DAILY [facility] Last Admin: 07/16/18 10:03 Dose: 100 mg Rosuvastatin Calcium (Crestor) 20 mg PO HS [facility] Last Admin: 07/15/18 21:29 Dose: 20 mg - Labs Labs: 07/13/18 12:53 07/13/18 12:53 PT 12.0 SECONDS (9.7-12.2) 07/13/18 12:53 INR 1.1 07/13/18 12:53 APTT 33 SECONDS (21-34) 07/13/18 12:53 - Constitutional Appears: Non-toxic, No Acute Distress - Head Exam Head Exam: ATRAUMATIC, NORMOCEPHALIC - Eye Exam Eye Exam: EOMI - ENT Exam ENT Exam: Mucous Membranes Moist - Respiratory Exam Respiratory Exam: NORMAL BREATHING PATTERN - Cardiovascular Exam Cardiovascular Exam: +S1, +S2 - GI/Abdominal Exam GI & Abdominal Exam: Soft. absent: Tenderness - Neurological Exam Neurological Exam: Alert, Awake Neuro motor strength exam: Left Upper Extremity: 5, Right Upper Extremity: 5, L eft Lower Extremity: 5, Right Lower Extremity: 5 - Psychiatric Exam Psychiatric exam: Normal Affect, Normal Mood - Skin Skin Exam: Dry, Intact Assessment and Plan - Assessment and Plan (Free Text) Assessment: 77M with CVA Dupplex: L- ICA stenosis 50%-60% based on a velocity of 162 CTA: Unremarkable No surgical intervention at this time. Continue medical management Further recommendations per Dr. Hanh Barker PGY3
--- NOTE | 2018-07-16 22:55 | CP.PCM.PN ---
Subjective - Subjective Subjective: dictated Objective - Vital Signs/Intake and Output Vital Signs (last 24 hours): Temp Pulse Resp BP Pulse Ox 97.3 F L 67 20 144/66 98 07/16/18 15:00 07/16/18 15:00 07/16/18 15:00 07/16/18 15:00 07/16/18 15:00 - Medications Medications: Current Medications Acetaminophen (Tylenol 325mg Tab) 650 mg PO Q6 PRN PRN Reason: Pain, Mild (1-3) Last Admin: 07/15/18 21:29 Dose: 650 mg Aspirin (Ecotrin) 81 mg PO DAILY [facility] Clopidogrel Bisulfate (Plavix) 75 mg PO DAILY [facility] Last Admin: 07/16/18 16:01 Dose: 75 mg Enoxaparin Sodium (Lovenox) 40 mg SC DAILY [facility] Last Admin: 07/16/18 10:02 Dose: 40 mg Lidocaine (Lidoderm) 1 ea TD Q12H [facility] Last Admin: 07/16/18 13:54 Dose: 1 ea Losartan Potassium (Cozaar) 100 mg PO DAILY [facility] Last Admin: 07/16/18 10:03 Dose: 100 mg Rosuvastatin Calcium (Crestor) 20 mg PO HS [facility] Last Admin: 07/16/18 22:06 Dose: 20 mg - Labs Labs: 07/13/18 12:53 07/13/18 12:53 PT 12.0 SECONDS (9.7-12.2) 07/13/18 12:53 INR 1.1 07/13/18 12:53 APTT 33 SECONDS (21-34) 07/13/18 12:53
[2018-07-17] MEDS: Enoxaparin 40 mg Syringe SC SCH (09:31)
--- NOTE | 2018-07-17 12:32 | MRI ---
Date of service: 07/16/2018 PROCEDURE: HISTORY: R shoulder rotator cuff tear COMPARISON: TECHNIQUE: FINDINGS: Complete tear of the supraspinatus tendon which is retracted roughly 3.5 centimeters from the greater tuberosity. Accompanying partial intersubstance tear of the infraspinatus tendon. Associated subacromial/subdeltoid bursitis in association with a glenohumeral joint effusion and subcoracoid bursitis. Edema tracks medially along the rotator cuff fascial planes. The biceps tendon is intact within its groove. There is mild acromioclavicular osteoarthritis. No labral tear or Hill-Sachs defect is identified. There is no fracture. IMPRESSION: Complete tear of the supraspinatus tendon which is retracted roughly 3.5 centimeters from the greater tuberosity. Accompanying partial intersubstance tear of the infraspinatus tendon. Associated subacromial/subdeltoid bursitis in association with a glenohumeral joint effusion and subcoracoid bursitis.
[2018-07-17] MEDS: Lidocaine 5% Patch TD SCH (14:06)
--- NOTE | 2018-07-17 23:24 | CP.PCM.PN ---
Subjective - Subjective Subjective: dictated Objective - Vital Signs/Intake and Output Vital Signs (last 24 hours): Temp Pulse Resp BP Pulse Ox 97.9 F 65 20 129/62 96 07/17/18 15:00 07/17/18 15:00 07/17/18 15:00 07/17/18 15:00 07/17/18 15:00 - Medications Medications: Current Medications Acetaminophen (Tylenol 325mg Tab) 650 mg PO Q6 PRN PRN Reason: Pain, Mild (1-3) Last Admin: 07/17/18 20:36 Dose: 650 mg Aspirin (Ecotrin) 81 mg PO DAILY [facility] Last Admin: 07/17/18 09:30 Dose: 81 mg Clopidogrel Bisulfate (Plavix) 75 mg PO DAILY [facility] Last Admin: 07/17/18 09:31 Dose: 75 mg Enoxaparin Sodium (Lovenox) 40 mg SC DAILY [facility] Last Admin: 07/17/18 09:31 Dose: 40 mg Lidocaine (Lidoderm) 1 ea TD Q12H [facility] Last Admin: 07/17/18 14:06 Dose: Not Given Losartan Potassium (Cozaar) 100 mg PO DAILY [facility] Last Admin: 07/17/18 09:31 Dose: 100 mg Rosuvastatin Calcium (Crestor) 20 mg PO HS [facility] Last Admin: 07/17/18 21:07 Dose: Not Given - Labs Labs: 07/13/18 12:53 07/13/18 12:53 PT 12.0 SECONDS (9.7-12.2) 07/13/18 12:53 INR 1.1 07/13/18 12:53 APTT 33 SECONDS (21-34) 07/13/18 12:53
--- NOTE | 2018-07-18 03:00 | PN ---
DATE: 07/17/2018 SUBJECTIVE: Rich Leung has right-sided CVA. He also has right shoulder pain. He is afebrile PHYSICAL EXAMINATION: VITAL SIGNS: Blood pressure 144/66, pulse 67, respiratory rate 20, temperature 97.3. LUNGS: Clear. CARDIOVASCULAR SYSTEM: S1 and S2 are regular. ABDOMEN: Soft and nontender. Bowel sounds are positive. CENTRAL NERVOUS SYSTEM: right side is 2/5. ASSESSMENT: 1. Cerebrovascular accident with right-sided weakness, on physiotherapy. 2. Hypertension. 3. Hyperlipidemia. PLAN: Continue physiotherapy. Monitor patient. Richie Bernstein MD
--- NOTE | 2018-07-18 03:10 | PN ---
DATE: 07/17/2018 SUBJECTIVE: Patient is feeling better. He is on physiotherapy. No fever, no chills. PHYSICAL EXAMINATION: VITAL SIGNS: Blood pressure 129/62, pulse 65, respiratory rate 20, temperature 97.9. LUNGS: Clear. CARDIOVASCULAR SYSTEM: S1 and S2 regular. CENTRAL NERVOUS SYSTEM: Right-sided power is 2/5. ASSESSMENT AND PLAN: 1. Cerebrovascular accident, on physiotherapy. 2. Hypertension. PLAN: Continue physiotherapy, orthopedic evaluation for right shoulder. The patient was already seen by Neurology. Richie Bernstein MD
[2018-07-18 09:04] VITALS: O2SAT 97
[2018-07-18] MEDS: Enoxaparin 40 mg Syringe SC SCH (10:17)
[2018-07-18] MEDS: Lidocaine 5% Patch TD SCH (12:30)
--- NOTE | 2018-07-18 13:07 | CP.PCM.PN ---
Subjective - Date & Time of Evaluation Date of Evaluation: 07/18/18 Time of Evaluation: 13:06 - Subjective Subjective: Patient seen and examined at bedside. Pain better controlled. Reports improvement with PT. No other complaints. Scheduled for d/w home today. Objective - Vital Signs/Intake and Output Vital Signs (last 24 hours): Temp Pulse Resp BP Pulse Ox 98.1 F 67 20 132/74 97 07/18/18 07:00 07/18/18 07:00 07/18/18 07:00 07/18/18 07:00 07/18/18 07:00 - Medications Medications: Current Medications Acetaminophen (Tylenol 325mg Tab) 650 mg PO Q6 PRN PRN Reason: Pain, Mild (1-3) Last Admin: 07/17/18 20:36 Dose: 650 mg Aspirin (Ecotrin) 81 mg PO DAILY [facility] Last Admin: 07/18/18 10:19 Dose: 81 mg Clopidogrel Bisulfate (Plavix) 75 mg PO DAILY [facility] Last Admin: 07/18/18 10:18 Dose: 75 mg Enoxaparin Sodium (Lovenox) 40 mg SC DAILY [facility] Last Admin: 07/18/18 10:17 Dose: 40 mg Lidocaine (Lidoderm) 1 ea TD Q12H [facility] Last Admin: 07/17/18 14:06 Dose: Not Given Losartan Potassium (Cozaar) 100 mg PO DAILY [facility] Last Admin: 07/18/18 10:18 Dose: 100 mg Rosuvastatin Calcium (Crestor) 20 mg PO HS [facility] Last Admin: 07/17/18 21:07 Dose: Not Given - Labs Labs: 07/13/18 12:53 07/13/18 12:53 PT 12.0 SECONDS (9.7-12.2) 07/13/18 12:53 INR 1.1 07/13/18 12:53 APTT 33 SECONDS (21-34) 07/13/18 12:53 - Extremities Exam Additional comments: RUE: no swelling/masses/deformity/lesions tenderness anteriorly and laterally, tender at bicipital groove sensation and motor intact AXN/MN/UN/RN radial pulse intact LUE: no swelling/masses/deformity/lesions no tenderness FROM sensation and motor intact AXN/MN/UN/RN radial pulse intact Assessment and Plan (1) Right rotator cuff tear Assessment & Plan: -pain controlled -MRI reveals acute rotator cuff tear with retraction -PT/OT ROM/strenthening as tolerated -f/u as outpatient, no acute orthopedic intervention needed -orthopedically stable for discharge -Above d/w Dr. Perez in agreement Status: Acute Radiology Interpretation - Cell Maker Cell Maker:: Radiologist - Study type Study type:: MRI - Notes: Notes:: Accession No. : [id number] Patient Name / ID : EDUARDA Mcmahon / [id number] Exam Date : 07/16/2018 12:06:23 ( Approved ) Study Comment : Sex / Age : M / 77Y Creator : Wander Avery MD Dictator : Wander Avery MD Vending Mechanic : Artificial Limb Maker : Wander Avery MD Approver2 : Report Date : 07/17/2018 12:26:52 My Comment : Date of service: 07/16/2018 PROCEDURE: HISTORY: R shoulder rotator cuff tear COMPARISON: TECHNIQUE: FINDINGS: Complete tear of the supraspinatus tendon which is retracted roughly 3.5 centimeters from the greater tuberosity. Accompanying partial intersubstance tear of the infraspinatus tendon. Associated subacromial/subdeltoid bursitis in association with a glenohumeral joint effusion and subcoracoid bursitis. Edema tracks medially along the rotator cuff fascial planes. The biceps tendon is intact within its groove. There is mild acromioclavicular osteoarthritis. No labral tear or Hill-Sachs defect is identified. There is no fracture. IMPRESSION: Complete tear of the supraspinatus tendon which is retracted roughly 3.5 centimeters from the greater tuberosity. Accompanying partial intersubstance te ar of the infraspinatus tendon. Associated subacromial/subdeltoid bursitis in association with a glenohumeral joint effusion and subcoracoid bursitis.
--- NOTE | 2018-07-18 14:12 | CP.PCM.PN ---
Subjective - Date & Time of Evaluation Date of Evaluation: 07/18/18 Time of Evaluation: 14:10 - Subjective Subjective: Neuro Follow-Up Note: Mr. Leung was evaluated this afternoon at bedside. He still complains of weakness to the right arm and right shoulder pain. He admits that his limited ROM to the right arm is due to the pain that he has. Pain not improved much with analgesics. Pt states he has rec'd PT in the past that has helped. Denies h/a, dizziness, visual changes, chest pain, sob, cough, n/v/d. Objective - Vital Signs/Intake and Output Vital Signs (last 24 hours): Temp Pulse Resp BP Pulse Ox 98.1 F 67 20 132/74 97 07/18/18 07:00 07/18/18 07:00 07/18/18 07:00 07/18/18 07:00 07/18/18 07:00 - Medications Medications: Current Medications Acetaminophen (Tylenol 325mg Tab) 650 mg PO Q6 PRN PRN Reason: Pain, Mild (1-3) Last Admin: 07/17/18 20:36 Dose: 650 mg Aspirin (Ecotrin) 81 mg PO DAILY [facility] Last Admin: 07/18/18 10:19 Dose: 81 mg Clopidogrel Bisulfate (Plavix) 75 mg PO DAILY [facility] Last Admin: 07/18/18 10:18 Dose: 75 mg Enoxaparin Sodium (Lovenox) 40 mg SC DAILY [facility] Last Admin: 07/18/18 10:17 Dose: 40 mg Lidocaine (Lidoderm) 1 ea TD Q12H [facility] Last Admin: 07/17/18 14:06 Dose: Not Given Losartan Potassium (Cozaar) 100 mg PO DAILY [facility] Last Admin: 07/18/18 10:18 Dose: 100 mg Rosuvastatin Calcium (Crestor) 20 mg PO HS [facility] Last Admin: 07/17/18 21:07 Dose: Not Given - Labs Labs: 07/13/18 12:53 07/13/18 12:53 PT 12.0 SECONDS (9.7-12.2) 07/13/18 12:53 INR 1.1 07/13/18 12:53 APTT 33 SECONDS (21-34) 07/13/18 12:53 - Constitutional Appears: Well, Non-toxic, No Acute Distress - Head Exam Head Exam: ATRAUMATIC, NORMAL INSPECTION, NORMOCEPHALIC - Eye Exam Eye Exam: EOMI, Normal appearance Pupil Exam: NORMAL ACCOMODATION, PERRL - ENT Exam ENT Exam: Mucous Membranes Moist - Neck Exam Neck Exam: Full ROM, Normal Inspection - Respiratory Exam Respiratory Exam: NORMAL BREATHING PATTERN - Extremities Exam Extremities Exam: absent: Calf Tenderness, Full ROM, Pedal Edema Additional comments: decreased rom to rue and rle tenderness noted to right shoulder - Back Exam Back Exam: Full ROM - Neurological Exam Neurological Exam: Alert, Awake, CN II-XII Intact, Oriented x3, Reflexes Normal Neuro motor strength exam: Left Upper Extremity: 5, Right Upper Extremity: 4, Left Lower Extremity: 5, Right Lower Extremity: 5 Additional comments: speech clear, fluid decreased rom to rue likely 2/2 shoulder pain not neurological deficit sensation intact; fine motor intact - Psychiatric Exam Psychiatric exam: Normal Affect, Normal Mood - Skin Skin Exam: Normal Color Assessment and Plan (1) CVA (cerebral vascular accident) Assessment & Plan: Imaging reviewed: -MRI brain(07/13): large early acute/late subacute infarction in the left posterior centrum semiovale. 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 -Continue ASA, Plavix, Statin -Vascular Surgery Consulted for left ICA stenosis: no surgical intervention. -Continue PT upon d/c. -Notify neuro of any acute changes in pt condition. We will sign off at this time. Reconsult prn. Case discussed with Dr. Shin Status: Acute
--- NOTE | 2018-07-18 14:47 | CP.PCM.PN ---
Subjective - Date & Time of Evaluation Date of Evaluation: 07/18/18 Time of Evaluation: 11:00 Objective - Vital Signs/Intake and Output Vital Signs (last 24 hours): Temp Pulse Resp BP Pulse Ox 98.1 F 67 20 132/74 97 07/18/18 07:00 07/18/18 07:00 07/18/18 07:00 07/18/18 07:00 07/18/18 07:00 - Medications Medications: Current Medications Acetaminophen (Tylenol 325mg Tab) 650 mg PO Q6 PRN PRN Reason: Pain, Mild (1-3) Last Admin: 07/17/18 20:36 Dose: 650 mg Aspirin (Ecotrin) 81 mg PO DAILY [facility] Last Admin: 07/18/18 10:19 Dose: 81 mg Clopidogrel Bisulfate (Plavix) 75 mg PO DAILY [facility] Last Admin: 07/18/18 10:18 Dose: 75 mg Enoxaparin Sodium (Lovenox) 40 mg SC DAILY [facility] Last Admin: 07/18/18 10:17 Dose: 40 mg Lidocaine (Lidoderm) 1 ea TD Q12H [facility] Last Admin: 07/17/18 14:06 Dose: Not Given Losartan Potassium (Cozaar) 100 mg PO DAILY [facility] Last Admin: 07/18/18 10:18 Dose: 100 mg Rosuvastatin Calcium (Crestor) 20 mg PO HS [facility] Last Admin: 07/17/18 21:07 Dose: Not Given - Labs Labs: 07/13/18 12:53 07/13/18 12:53 PT 12.0 SECONDS (9.7-12.2) 07/13/18 12:53 INR 1.1 07/13/18 12:53 APTT 33 SECONDS (21-34) 07/13/18 12:53
[2018-07-18 16:38] VITALS: BP 128/73; PULSE 73; RESP 18; TEMP 97.6
--- NOTE | 2018-07-18 23:03 | CP.PCM.DIS ---
Provider - Provider Date of Admission: 07/13/18 14:26 Attending physician: Richie Bernstein MD Consults: 07/13/18 12:48 Neurology Consult Stat Comment: Consulting Provider: Jose Shin Consulting Physician: Jose Shin Reason for Consult: right side weakness 07/14/18 15:35 Pulmonology Consult Routine Comment: Consulting Provider: Nolan Jackman Consulting Physician: Nolan Jackman Reason for Consult: lung nodule 07/15/18 12:52 Orthopedic Consult Routine Comment: Consulting Provider: Diego Perez Consulting Physician: Diego Perez Reason for Consult: Chronic rotator cuff injury 07/16/18 14:06 Vascular Surgery Routine Comment: Consulting Provider: Mikey Schafer Jr. Physician Instructions: Reason For Exam: Left proximal ICA 50-60% stenosis Hospital Course - Lab Results Lab Results: Most Recent Lab Values WBC 7.4 K/uL (4.8-10.8) 07/13/18 12:53 RBC 4.48 Mil/uL (4.40-5.90) 07/13/18 12:53 Hgb 14.7 g/dL (12.0-18.0) 07/13/18 12:53 Hct 43.9 % (35.0-51.0) 07/13/18 12:53 MCV 98.0 fL (80.0-94.0) H 07/13/18 12:53 MCH 32.9 pg (27.0-31.0) H 07/13/18 12:53 MCHC 33.6 g/dL (33.0-37.0) 07/13/18 12:53 RDW 13.0 % (11.5-14.5) 07/13/18 12:53 Plt Count 325 K/uL (130-400) 07/13/18 12:53 MPV 8.7 fL (7.2-11.7) 07/13/18 12:53 Neut % (Auto) 59.9 % (50.0-75.0) 07/13/18 12:53 Lymph % (Auto) 32.1 % (20.0-40.0) 07/13/18 12:53 Weber % (Auto) 5.2 % (0.0-10.0) 07/13/18 12:53 Eos % (Auto) 1.4 % (0.0-4.0) 07/13/18 12:53 Baso % (Auto) 1.4 % (0.0-2.0) 07/13/18 12:53 Neut # (Auto) 4.4 K/uL (1.8-7.0) 07/13/18 12:53 Lymph # (Auto) 2.4 K/uL (1.0-4.3) 07/13/18 12:53 Weber # (Auto) 0.4 K/uL (0.0-0.8) 07/13/18 12:53 Eos # (Auto) 0.1 K/uL (0.0-0.7) 07/13/18 12:53 Baso # (Auto) 0.1 K/uL (0.0-0.2) 07/13/18 12:53 PT 12.0 SECONDS (9.7-12.2) 07/13/18 12:53 INR 1.1 07/13/18 12:53 APTT 33 SECONDS (21-34) 07/13/18 12:53 Sodium 138 mmol/L (132-148) 07/13/18 12:53 Potassium 3.8 mmol/L (3.6-5.2) 07/13/18 12:53 Chloride 103 mmol/L (98-107) 07/13/18 12:53 Carbon Dioxide 23 mmol/L (22-30) 07/13/18 12:53 Anion Gap 16 (10-20) 07/13/18 12:53 BUN 17 mg/dL (9-20) 07/13/18 12:53 Creatinine 0.9 mg/dL (0.8-1.5) 07/13/18 12:53 Est GFR ( Amer) > 60 07/13/18 12:53 Est GFR (Non-Af Amer) > 60 07/13/18 12:53 POC Glucose (mg/dL) 94 mg/dL (65-110) 07/13/18 12:27 Random Glucose 99 mg/dL (75-110) 07/13/18 12:53 Hemoglobin A1c 5.0 % (4.2-6.5) 07/13/18 19:43 Calcium 9.1 mg/dl (8.6-10.4) 07/13/18 12:53 Total Bilirubin 0.6 mg/dL (0.2-1.3) 07/13/18 12:53 AST 24 U/L (17-59) 07/13/18 12:53 ALT 17 U/L (21-72) L 07/13/18 12:53 Alkaline Phosphatase 75 U/L (38-126) 07/13/18 12:53 Troponin I < 0.0120 ng/mL (0.00-0.120) 07/13/18 12:53 NT-Pro-B Natriuret Pep 33.6 pg/mL (0-900) 07/13/18 12:53 Total Protein 8.1 g/dL (6.3-8.3) 07/13/18 12:53 Albumin 4.8 g/dL (3.5-5.0) 07/13/18 12:53 Globulin 3.3 gm/dL (2.2-3.9) 07/13/18 12:53 Albumin/Globulin Ratio 1.5 (1.0-2.1) 07/13/18 12:53 Triglycerides 142 mg/dL (0-149) 07/13/18 19:43 Cholesterol 162 mg/dL (0-199) 07/13/18 19:43 LDL Cholesterol Direct 113 mg/dL (0-129) 07/13/18 19:43 HDL Cholesterol 47 mg/dL (30-70) 07/13/18 19:43 Vitamin B12 295 pg/mL (239-931) 07/13/18 19:43 Folate 13.2 ng/mL 07/13/18 19:43 TSH 3rd Generation 2.44 mIU/L (0.46-4.68) 07/13/18 19:43 Urine Color Straw (YELLOW) 07/13/18 14:07 Urine Clarity Clear (Clear) 07/13/18 14:07 Urine pH 7.0 (5.0-8.0) 07/13/18 14:07 Ur Specific Buras 1.004 (1.003-1.030) 07/13/18 14:07 Urine Protein Negative mg/dL (NEGATIVE) 07/13/18 14:07 Urine Glucose (UA) Normal mg/dL (Normal) 07/13/18 14:07 Urine Ketones Negative mg/dL (NEGATIVE) 07/13/18 14:07 Urine Blood Negative (NEGATIVE) 07/13/18 14:07 Urine Nitrate Negative (NEGATIVE) 07/13/18 14:07 Urine Bilirubin Negative (NEGATIVE) 07/13/18 14:07 Urine Urobilinogen Normal mg/dL (0.2-1.0) 07/13/18 14:07 Ur Leukocyte Esterase Neg Alessio/uL (Negative) 07/13/18 14:07 Urine WBC (Auto) < 1 /hpf (0-5) 07/13/18 14:07 Ur Squamous Epith Cells < 1 /hpf (0-5) 07/13/18 14:07 Discharge Exam - Head Exam Head Exam: ATRAUMATIC, NORMAL INSPECTION, NORMOCEPHALIC Discharge Plan - Discharge Medications Prescriptions: Losartan [Cozaar] 100 mg PO DAILY #30 tab Rosuvastatin Calcium [Crestor] 20 mg PO HS #30 tab Aspirin [Ecotrin] 81 mg PO DAILY #30 tabec Lidocaine 5% [Lidoderm] 1 ea TD Q12H #30 patch Clopidogrel [Plavix] 75 mg PO DAILY #30 tab - Follow Up Plan Condition: FAIR Disposition: HOME/ ROUTINE Instructions: Rotator Cuff Injury, Heart Healthy Diet, Stroke (DC), Lidocaine (Topical), Aspirin, Clopidogrel, Losartan, Rosuvastatin Additional Instructions: Please f/u with jayden Crook office in 1 week Please f/u with Dr. Serafin Cortez office #[phone], [address] [place] [address] - call and make appointment Continue medication as per med. rec. Referrals: Nolan Jackman MD [Staff Provider] - Diego Perez MD [Medical Doctor] - Richie Bernstein MD [Staff Provider] - Mikey Schafer Jr., MD [Staff Provider] - Jose Shin MD [Staff Provider] -
--- NOTE | 2018-07-19 04:21 | DS ---
DISCHARGE DIAGNOSES: Cerebrovascular accident, osteoarthritis of right shoulder, hypertension. HISTORY OF PRESENT ILLNESS: This is a 77-year-old male with history of hypertension, hyperlipidemia. Came in with right-sided weakness, found to have acute CVA. Seen by the Neurology. The patient underwent an MRI of brain which showed CVA. He underwent echocardiogram and carotid Doppler which was essentially negative. The patient was evaluated by Orthopedics. An MRI of the right shoulder was done which showed complete tear of supraspinatus tendon about 3.5 cm from greater tuberosity. He was evaluated by Orthopedics. The patient is for transfer to rehab. Condition upon discharge is stable. The patient's carotid Dopplers had left sided 50% to 60% stenosis, CVA. PHYSICAL EXAMINATION: VITAL SIGNS: Blood pressure 128/73, pulse 73, respiratory rate 18, and temperature 97.6. LABORATORY DATA: WBC 7.4, hemoglobin 14.7, hematocrit 43.9, platelets 325. PT and PTT normal. Sodium 138, potassium 3.8, chloride 103, bicarb 27, BUN 17, and creatinine 0.9. LFTs benign. LDL 113. B12 is normal. CONDITION UPON DISCHARGE: Stable. Richie Bernstein MD
== END 2018-07-18 18:30 | disposition home or self-care (01) | DRG 65 ==
LOC: C.ER 12:13 → C.9E 14:26 → C.6T 16:21
PROVIDERS: ADMIT Internal Medicine; ATTEND Internal Medicine
DX: I63.81 Other cerebral infarction due to occlusion or stenosis of small artery (principal); G81.91 Hemiplegia, unspecified affecting right dominant side; X50.9XXA Other and unspecified overexertion or strenuous movements or postures, initial encounter; I10 Essential (primary) hypertension; E53.8 Deficiency of other specified B group vitamins; M75.101 Unspecified rotator cuff tear or rupture of right shoulder, not specified as traumatic; E78.5 Hyperlipidemia, unspecified; H91.91 Unspecified hearing loss, right ear; I73.9 Peripheral vascular disease, unspecified; M75.121 Complete rotator cuff tear or rupture of right shoulder, not specified as traumatic; I65.29 Occlusion and stenosis of unspecified carotid artery